=== PATIENT | male | born 1960 | race Caucasian/White ===

== ENCOUNTER 2020-11-14 15:52 | Emergency (ER) | payer BC, OTHER | END 2020-11-14 17:49 | disposition home or self-care (01) | LOC: JVIRT 15:52 | DX: U07.1 COVID-19 (principal); R09.81 Nasal congestion | CPT/HCPCS: C9803; G2012-GT; U0003 ==

== ENCOUNTER 2024-02-17 04:25 | Day surgery (SDC) | payer OTHER, BC ==
[2024-02-11 14:04] VITALS: BMI 25.2
[2024-02-17 09:13] VITALS: TEMP 98
[2024-02-17 09:17] VITALS: RESP 18
[2024-02-17 10:06] VITALS: BP 121/63; PULSE 61
== END 2024-02-17 10:06 | disposition home or self-care (01) ==
LOC: JASU-ENDO 04:25
PROVIDERS: ATTEND Internal Medicine Gastroenterology
PROC: 0DJD8ZZ Inspection of Lower Intestinal Tract, Via Natural or Artificial Opening Endoscopic (ICD-10-PCS; principal; 2024-02-17 09:00)
DX: Z12.11 Encounter for screening for malignant neoplasm of colon (principal); K55.20 Angiodysplasia of colon without hemorrhage; Z86.010 Personal history of colon polyps; I10 Essential (primary) hypertension; E11.9 Type 2 diabetes mellitus without complications; Z79.84 Long term (current) use of oral hypoglycemic drugs
CPT/HCPCS: 82962